=== PATIENT | female | born 1970 | race Caucasian/White ===

== ENCOUNTER 2017-01-24 20:28 | Emergency (ER) | payer BC ==
[~2017-01-24 20:28] MED LIST: AUGMENTIN 875-1 EACH PO; NORCO 5-325 TA1 EACH PO
== END 2017-01-24 22:28 | disposition left against medical advice (07) ==
LOC: ER1 20:28
DX: Z53.21 Procedure and treatment not carried out due to patient leaving prior to being seen by health care provider (principal)

== ENCOUNTER → 2021-03-03 | Outpatient (CLI) | payer OTHER ==
[~2021-03-03] MED LIST changes: +BACTRIM DS TAB1 EACH PO; +BACTROBAN OINT22 GM EXT; +COZAAR50 MG PO; +DOXEPIN HCL10 MG PO; +ELAVIL 25 MG TA25 MG PO; +IBUPROFEN IB200 MG PO; +IBUPROFEN600 MG PO; +TAMIFLU75 MG PO; +TESSALON PERLE100 MG PO; +VOLTAREN EC 5050 MG PO; +ZOFRAN4 MG PO
== END ==
LOC: KOH-I 15:21
DX: M54.2 Cervicalgia (principal); M54.6 Pain in thoracic spine; M54.5 Low back pain; M25.78 Osteophyte, vertebrae
CPT/HCPCS: 72040; 72070; 72100

== ENCOUNTER 2021-06-17 19:17 | Emergency (ER) | payer OTHER ==
[2021-06-17] MEDS ORDERED: PERCOCET 5/325 T1 EA PO (23:16)
== END 2021-06-17 23:55 | disposition home or self-care (01) ==
LOC: ER1 19:17
DX: M54.6 Pain in thoracic spine (principal); I10 Essential (primary) hypertension; F17.210 Nicotine dependence, cigarettes, uncomplicated; Z90.710 Acquired absence of both cervix and uterus
CPT/HCPCS: 72128; 99283

== ENCOUNTER → 2021-11-13 | Outpatient (CLI) | payer OTHER ==
[~2021-11-13] MED LIST changes: +PERCOCET 5/325 T1 EA PO
== END ==
LOC: KOH-I 11-12 10:30
DX: R10.9 Unspecified abdominal pain (principal)
CPT/HCPCS: 76700

== ENCOUNTER → 2022-03-15 | Outpatient (CLI) | payer OTHER | LOC: KOH-I 10:30 | DX: R10.9 Unspecified abdominal pain (principal); K76.0 Fatty (change of) liver, not elsewhere classified | CPT/HCPCS: 76705 ==